=== PATIENT | female | born 1975 | race Caucasian/White ===

== ENCOUNTER 2019-12-11 13:38 | Emergency (ER) | payer BC ==
--- OUTSIDE RECORDS SUMMARY | 2019-12-11 13:40 | XMS REPORT ---
:1975 Author Organization [facility] Address [address] [place] [address] Dr. Mckeon [address] [place] [address] Care Team Providers Name Role Phone Unavailable Unavailable Unavailable Problems This patient has no known problems. Allergies, Adverse Reactions, Alerts This patient has no known allergies or adverse reactions. Medications This patient has no known medications.
--- OUTSIDE RECORDS SUMMARY | 2019-12-11 13:40 | XMS REPORT | Summary of Care ---
:1975 Author Organization [facility] Address [address] [place] [address] Care Team Providers Name Role Phone Alexa Ko ANP Primary Care Provider Reason for Visit Reason Comments Physical Encounter Details Date Type Department Care Team Description 05/19/2019 Office Visit [facility] Pediatric Alexa Ko, Physical exam, annual (Primary Dx); & Adult Primary ANP High cholesterol; [facility] [address] [facility] [place] Hypothyroidism, unspecified type; [address] [place], [place] [phone] Allergies No Known Allergiesdocumented as of this encounter (statuses as of 05/19/2019) Medications Medication Sig Dispensed Refills Start Date End Date Status levonorgestrel 1 Device by 0 Active (MIRENA) 20 mcg/24 hr Intrauterine route (5 years) IUD once now. lisinopril 5 mg 1 by mouth every 90 tablet 1 02/16/2019 Active tabletIndications: day Essential hypertension, benign Levothyroxine 100 mcg Take 1 capsule by 90 capsule 0 02/21/2019 Active capsuleIndications: mouth daily. 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 documented as of this encounter Last Filed Vital Signs Vital Sign Reading Time Taken Comments Blood Pressure 127/87 05/19/2019 1:13 PM CDT Pulse 74 05/19/2019 1:13 PM CDT Temperature - - Respiratory Rate 18 05/19/2019 1:13 PM CDT Oxygen Saturation 96% 05/19/2019 1:13 PM CDT Inhaled Oxygen Concentration - - Weight 106.2 kg (234 lb 3 oz) 05/19/2019 1:13 PM CDT Height 164.5 cm (5' 4.76") 05/19/2019 1:13 PM CDT Body Mass Index 39.26 05/19/2019 1:13 PM CDT documented in this encounter Progress Notes Alexa Ko, ANP - 05/19/2019 1:20 PM CDT History of Present Illness CC: physical Adriana Donnelly is a 44 year old female with h/o has a past medical history of Asthma, Hypertension, Migraine, and Unspecified hypothyroidism (2013). present for established patient annualexamination. Doing well. No concerns voiced. Tolerating medications with no reported SE's. 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 Needs titers for MMR, Varicella, Hepatitis B. Vaccines required Tdap, Flu shot. LMP -not documented Has Mirina IUD in place - had been having gross menorrhagia Mammogram -current /on file Repeat TSH, Free T4 due now- thyroid levels from February 2019 reflecting being off medication at that time Tdap booster today Flu shot- will obtain at pharmacy Colonoscopy -never REVIEW OF SYSTEMS Review of Systems Review of Systems: (all negative and + Bold) General: fever, weight change, fatigue, change in appetite Skin: rash HEENT: change in vision, See Above Resp: shortness of breath, dyspnea on exertion Cardio: chest pain, palpitations, syncope GI: abdominal pain, nausea, vomiting, diarrhea, constipation : dysuria,hematuria Neuro: numbness, weakness Back: pain MS: joint pain, claudication Psych: anxiety, depression Also see above HPI for +/- Past History Reviewed: family history , past medical history, social history and surgical history Updated: family history , past medical history, social history and surgical history Past Medical History: Diagnosis Date Asthma Hypertension Migraine Unspecified hypothyroidism 11/19/2013 Family History Problem Relation Age of Onset Hypertension Mother Hypertension Father Diabetes Father Thyroid Mother Heart Sister afib Cancer Paternal Grandmother leukemia Family Status Relation Name Status Mo (Not Specified) Fa (Not Specified) Fa (Not Specified) Mo (Not Specified) Sis (Not Specified) PGMo (Not Specified) No past surgical history on file. OB History No data available Physical Exam BP 127/87 | Pulse 74 | Resp 18 | Ht 5' 4.76" (1.645 m) | Wt 234 lb 3 oz ( 106.2 kg) | SpO2 96% | BMI 39.26 kg/m Wt Readings from Last 4 Encounters: 05/19/19 234 lb 3 oz (106.2 kg) 02/16/19 233 lb (105.7 kg) 02/04/14 206 lb (93.4 kg) 12/11/13 202 lb 9.6 oz (91.9 kg) GENERAL: Alert, No acute distress EENT: PERRL, EOMI, sclera -anicteric. Oral - moist mucus membranes, no erythema or exudate. NECK: Supple, no JVD, no adenopathy, thyromegaly or bruits LUNGS: CTA bilaterally. Good air exchange. No wheezes or crackles. HEART: Regular rate and rhythm ABDOMEN: Non-distended, Non-tender, soft, positive bowel sounds all four quadrants. No oraganomegalyor masses noted. No guarding or rebound. BACK: No CVAT or spinal tenderness EXTREMITIES: No edema. Warm feet and pulses symmetric. JOINTS: No synovitis. FROM NEURO: No focal deficits. SKIN: No suspicious lesions, good turgor MOOD: Appropriate. Good judgement and eye contact. Current Medications Outpatient Medications Marked as Taking for the 05/19/19 encounter (Office Visit ) with Kevyn Ko ANP Medication Sig Dispense Refill Levothyroxine 100 mcg capsule Take 1 capsule by mouth daily. 90 capsule 0 levonorgestrel (MIRENA) 20 mcg/24 hr (5 years) IUD 1 Device by Intrauterine route once now. lisinopril 5 mg tablet 1 by mouth every day 90 tablet 1 Labs Reviewed No visits with results within 3 Month(s) from this visit. Latest known visit with results is: Office Visit on 02/16/2019 Component Date Value NA 02/16/2019 141 K 02/16/2019 4.0 CL 02/16/2019 108 CO2 TOTAL 02/16/2019 24 AGAP 02/16/2019 9 BUN 02/16/2019 13 GLUCOSE 02/16/2019 100 CREATININE 02/16/2019 0.74 TOTAL BILI 02/16/2019 1.4* CALCIUM 02/16/2019 9.2 T PROTEIN 02/16/2019 7.0 ALBUMIN 02/16/2019 4.0 ALK PHOS 02/16/2019 125* ALT(SGPT) 02/16/2019 43 AST(SGOT) 02/16/2019 28 eGFR Calculation (Non-Af* 02/16/2019 86.1 eGFR Calculation (Sarah* 02/16/2019 104.3 CHOL 02/16/2019 217* HDL 02/16/2019 46* HDLC RATIO 02/16/2019 4.7* TRIG 02/16/2019 148 LDL CHOL 02/16/2019 141 VLDL 02/16/2019 30 TSH 02/16/2019 31.40* FREE T4 02/16/2019 0.54* Assessment and Plan 1. Physical exam, annual GLYCOSYLATED HEMOGLOBIN (A1C) VITAMIN B12, LEVEL CBC WITH DIFF MEASLES IGG MUMPS IGG RUBELLA AB, IGM VZV ANTIBODY SCREEN HEPATITIS B SURFACE ANTIBODY CANCELED: COMP. METABOLIC PANEL (15682) 2. High cholesterol GLYCOSYLATED HEMOGLOBIN (A1C) CANCELED: COMP. METABOLIC PANEL (49326) CANCELED: LIPID PANEL (94059)(TOTAL CHOLESTEROL, TRIGLYCERIDES, HDL) 3. Hypothyroidism, unspecified type GLYCOSYLATED HEMOGLOBIN (A1C) THYROID STIMULATING HORMONE VITAMIN B12, LEVEL FREE T4 CANCELED: COMP. METABOLIC PANEL (10719) CANCELED: LIPID PANEL (33490)(TOTAL CHOLESTEROL, TRIGLYCERIDES, HDL) Additional Comments Follow up one year /prn Recommend regular exercise, weight loss, low fat, low salt, low cholesterol diet to prevent/manage diseases such as hypertension, diabetes, hyperlipidemia and heart disease As necessary, prescribed medications and potential significant medication side effects or medicationinteractions were discussed with the patient and pt will let me know if any occur. Call or return to clinic prn if these symptoms worsen or fail to improve as anticipated. Call or report to ER if symptoms should symptoms progress or worsen. The patient indicates understanding of these issues and agrees with the plan. AVS printed and given to patient/family/guardian Follow up as below Future Appointments Provider Department Dept Phone Center 08/17/2019 7:00 AM Alexa Ko ANP [facility] Pediatric & Adult Primary [phone] CBC Friendsw documented in this encounter Plan of Treatment Date Type Specialty Care Team Description 08/17/2019 Office Visit Family Medicine Alexa Ko ANP [address] [place] [phone] Name Type Priority Associated Diagnoses Order Schedule GLYCOSYLATED HEMOGLOBIN LAB Routine Physical exam, annual Ordered: 05/19/2019 (A1C) High cholesterol Hypothyroidism, unspecified type THYROID STIMULATING LAB Routine Hypothyroidism, Ordered: 05/19/2019 HORMONE unspecified type VITAMIN B12, LEVEL LAB Routine Physical exam, annual 1 Occurrences starting Hypothyroidism, 05/19/2019 until unspecified type 05/19/2019 CBC WITH DIFF LAB Routine Physical exam, annual 1 Occurrences starting 05/19/2019 until 05/19/2019 FREE T4 LAB Routine Hypothyroidism, 1 Occurrences starting unspecified type 05/19/2019 until 06/17/2019 MEASLES IGG LAB Routine Physical exam, annual Ordered: 05/19/2019 MUMPS IGG LAB Routine Physical exam, annual Ordered: 05/19/2019 RUBELLA AB, IGM LAB Routine Physical exam, annual Ordered: 05/19/2019 VZV ANTIBODY SCREEN LAB Routine Physical exam, annual Ordered: 05/19/2019 HEPATITIS B SURFACE LAB Routine Physical exam, annual Ordered: 05/19/2019 ANTIBODY Health Maintenance Due Date Last Done Comments DTaP,Tdap,and Td Vaccines ( - 1995 Tdap) PAP SMEAR 1997 INFLUENZA VACCINE (#1) 2019 MAMMOGRAM 02/28/2020 02/27/2019 PNEUMOCOCCAL 0-64 YEARS COMBINED Aged Out No longer eligible based on SERIES patient's age to complete this topic documented as of this encounter Procedures Procedure Name Priority Date/Time Associated Diagnosis Comments TDAP (ADACEL) Routine 05/19/2019 1:32 PM Need for vaccination IMMUNIZATION CDT documented in this encounter Results Not on filedocumented in this encounter Visit Diagnoses Diagnosis Physical exam, annual - Primary Routine general medical examination at a health care facility High cholesterol Pure hypercholesterolemia Hypothyroidism, unspecified type Need for vaccination Need for prophylactic vaccination and inoculation against unspecified single disease documented in this encounter Insurance Payer Benefit Plan / Subscriber ID Effective Dates Phone Address Type Group BCBS OF HIM BCBS BLUE [id number] 2018-Ginger [phone] [address] [facility] t [id number] [place] [address] documented as of this encounter
--- OUTSIDE RECORDS SUMMARY | 2019-12-11 13:41 | XMS REPORT | Summary of Care ---
:1975 Author Organization [facility] Address [address] [place] [address] Care Team Providers Name Role Phone Alexa Ko ANP Primary Care Provider Reason for Visit Reason Comments Physical Encounter Details Date Type Department Care Team Description 05/19/2019 Office Visit [facility] Pediatric Alexa Ko, Physical exam, annual (Primary Dx); & Adult Primary ANP High cholesterol; [facility] [address] [facility] Hypothyroidism, unspecified type; [address] [place], [place] [phone] Allergies No Known Allergiesdocumented [...] Date Hypothyroidism 11/19/2013 Overview: ICD10 Diagnosis 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 Needs titers for MMR, [...] B SURFACE ANTIBODY CANCELED: COMP. METABOLIC PANEL (49541) 2. High cholesterol GLYCOSYLATED HEMOGLOBIN (A1C) CANCELED: COMP. METABOLIC PANEL (90283) CANCELED: LIPID PANEL (83915)(TOTAL CHOLESTEROL, TRIGLYCERIDES, HDL) 3. Hypothyroidism, unspecified type GLYCOSYLATED HEMOGLOBIN (A1C) THYROID STIMULATING HORMONE VITAMIN B12, LEVEL FREE T4 CANCELED: COMP. METABOLIC PANEL (67466) CANCELED: LIPID PANEL (41938)(TOTAL CHOLESTEROL, TRIGLYCERIDES, HDL) Additional Comments Follow up [...] Center 08/17/2019 7:00 AM Alexa Ko ANP [facility] Pediatric & Adult Primary [phone] CBC Friendsw documented in this encounter Plan of Treatment Date Type Specialty Care Team Description 08/17/2019 Office Visit Family Medicine Alexa Ko ANP [address] [place] [phone] Name Type Priority Associated Diagnoses Order [...] Type Group BCBS OF HIM BCBS BLUE [id number] 2018-Ginger [phone] [address] [facility] t 7 [phone] [place] [address] documented as of this encounter
--- OUTSIDE RECORDS SUMMARY | 2019-12-11 13:41 | XMS REPORT | Summary of Care ---
:1975 Author Organization [facility] Address [address] [place] [address] Care Team Providers Name Role Phone Alexa Ko ANP Primary Care Provider Reason for Visit Reason Comments Physical Encounter Details Date Type Department Care Team Description 05/19/2019 Office Visit [facility] Pediatric Alexa Ko Physical exam , annual (Primary Dx); & Adult Primary D, ANP High cholesterol; [address] Hypothyroidism, unspecified type; [address] [facility] Need for vaccination; [place], [place] Hypothyroidism due to acquired atrophy of thyroid; [phone] Medication monitoring encounter [phone] Allergies No Known Allergiesdocumented as of this [...] Date Hypothyroidism 11/19/2013 Overview: ICD10 Diagnosis 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 present for established patient annualexamination. Doing well. No concerns voiced. Tolerating medications with no reported SE's. 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 Needs titers for [...] B SURFACE ANTIBODY CANCELED: COMP. METABOLIC PANEL (63349) 2. High cholesterol GLYCOSYLATED HEMOGLOBIN (A1C) CANCELED: COMP. METABOLIC PANEL (40616) CANCELED: LIPID PANEL (61799)(TOTAL CHOLESTEROL, TRIGLYCERIDES, HDL) 3. Hypothyroidism, unspecified type GLYCOSYLATED HEMOGLOBIN (A1C) THYROID STIMULATING HORMONE VITAMIN B12, LEVEL FREE T4 CANCELED: COMP. METABOLIC PANEL (16885) CANCELED: LIPID PANEL (86559)(TOTAL CHOLESTEROL, TRIGLYCERIDES, HDL) Additional Comments Follow up [...] Dept Phone Center 08/17/2019 7:00 AM Alexa Ko, ANP [facility] Pediatric & Adult Primary [phone] CBC Friendsw documented in this encounter Plan of Treatment Date Type Specialty Care Team Description 08/17/2019 Office Visit Family Medicine Alexa Ko, BHANU [address] [place] [phone] Name Type Priority Associated Diagnoses Order [...] Routine Physical exam, annual Ordered: 05/19/2019 ANTIBODY CBC WITH DIFFERENTIAL LAB Routine Physical exam, annual Ordered: 05/19/2019 Health Maintenance Due Date Last Done Comments DTaP,Tdap,and Td Vaccines (1 - 1995 Tdap) PAP SMEAR 1997 INFLUENZA [...] vaccination and inoculation against unspecified single disease Hypothyroidism due to acquired atrophy of thyroid Medication monitoring encounter Encounter for therapeutic drug monitoring documented in this encounter Insurance Payer Benefit Plan / Subscriber ID Effective Dates Phone Address Type Group BCBS OF HIM BCBS BLUE [id number] [facility] [phone] [address] [facility] t [id number] [place] [address] documented as of this encounter
--- OUTSIDE RECORDS SUMMARY | 2019-12-11 13:41 | XMS REPORT | Summary of Care ---
:1975 Author Organization [facility] Address [address] [place] [address] Care Team Providers Name Role Phone Alexa Ko ANP Primary Care Provider Reason for Visit Reason Comments Physical Encounter Details Date Type Department Care Team Description 05/19/2019 Office Visit [facility] Pediatric Alexa Ko Physical exam , annual (Primary Dx); & Adult Primary D, ANP High cholesterol; [address] Hypothyroidism, unspecified type; [address] [facility] Need for vaccination; [place], [place] Hypothyroidism due to acquired atrophy of thyroid; [phone] Medication monitoring encounter [phone] Allergies No Known Allergiesdocumented as of this [...] Date Hypothyroidism 11/19/2013 Overview: ICD10 Diagnosis Term 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 Needs titers for [...] B SURFACE ANTIBODY CANCELED: COMP. METABOLIC PANEL (99527) 2. High cholesterol GLYCOSYLATED HEMOGLOBIN (A1C) CANCELED: COMP. METABOLIC PANEL (37068) CANCELED: LIPID PANEL (46342)(TOTAL CHOLESTEROL, TRIGLYCERIDES, HDL) 3. Hypothyroidism, unspecified type GLYCOSYLATED HEMOGLOBIN (A1C) THYROID STIMULATING HORMONE VITAMIN B12, LEVEL FREE T4 CANCELED: COMP. METABOLIC PANEL (55138) CANCELED: LIPID PANEL (62363)(TOTAL CHOLESTEROL, TRIGLYCERIDES, HDL) Additional Comments Follow up [...] Center 08/17/2019 7:00 AM Alexa Ko, ANP [facility] Pediatric & Adult Primary [phone] CBC Friendsw documented in this encounter Plan of Treatment Date Type Specialty Care Team Description 08/17/2019 Office Visit Family Medicine Alexa Ko, BHANU [address] [place] [phone] Name Type Priority Associated Diagnoses Order [...] Type Group BCBS OF HIM BCBS BLUE [id number] [facility] [phone] [address] [facility] t [phone] [place] [address] documented as of this encounter
--- OUTSIDE RECORDS SUMMARY | 2019-12-11 13:41 | XMS REPORT | Summary of Care ---
:1975 Author Organization [facility] Address [address] [place] [address] Care Team Providers Name Role Phone Alexa Ko ANP Primary Care Provider Reason for Visit Reason Comments TEST RESULTS returning nurse call Encounter Details Date Type Department Care Team Description 05/20/2019 Telephone [facility] Pediatric & Alexa Ko, TEST RESULTS (returning Adult Primary ANP nurse call) [facility] [phone] Allergies No Known Allergiesdocumented as of this encounter (statuses as of 05/25/2019) Medications Medication Sig Dispensed Refills Start Date [...] as of this encounter (statuses as of 05/25/2019) Active Problems Problem Noted Date Hypothyroidism 11/19/2013 Overview: ICD10 Diagnosis 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 Essential hypertension, benign 11/19/2013 Asthma Migraine documented as of this encounter (statuses as of 05/25/2019) Immunizations Name Administration Dates Next Due PPD (TB) 07/23/2017 TDAP (ADACEL) VACCINE 05/19/2019 documented as of [...] of this encounter Last Filed Vital Signs Not on filedocumented in this encounter Plan of Treatment Date Type Specialty Care Team Description 05/26/2019 Nurse Visit Pediatrics Nurse, 08/17/2019 Office Visit Family Medicine Alexa Ko, ANP [address] [place] [phone] Name Type Priority Associated Diagnoses Order Schedule TSH LAB Routine Hypothyroidism, unspecified type Expected: 05/26/2019, Expires: 09/24/2019 T4 FREE LAB Routine Hypothyroidism, unspecified type Expected: 05/26/2019, Expires: 09/24/2019 Health Maintenance Due Date Last Done Comments PAP SMEAR 1997 INFLUENZA VACCINE (#1) 2019 MAMMOGRAM 02/28/2020 02/27/2019 DTaP,Tdap,and Td Vaccines (2 - Td) 05/19/2029 05/19/2019 PNEUMOCOCCAL 0-64 YEARS COMBINED Aged Out No longer eligible based on SERIES patient's age to complete this topic documented as of this encounter Results Not on filedocumented in this encounter Visit Diagnoses Diagnosis Hypothyroidism, unspecified type - Primary documented in this encounter Insurance Payer Benefit Plan / Subscriber ID Effective Dates Phone Address Type Group BCBS OF HIM BCBS BLUE [id number] 2018-[place]inger [phone] [facility] t [id number] [place] [address] documented as of this encounter
--- OUTSIDE RECORDS SUMMARY | 2019-12-11 13:41 | XMS REPORT | Summary of Care ---
:1975 Author Organization [facility] Address [address] [place] [address] Care Team Providers Name Role Phone Alexa Ko ANP Primary Care Provider Reason for Visit Reason Comments NURSE VISIT MMR vaccine Encounter Details Date Type Department Care Team Description 05/26/2019 Nurse Visit [facility] Pediatric Alexa Ko, ANP [address] [place] [address] Need for MMR vaccine (Primary Dx); Primary Care - Nurse, Amita Hypothyroidism, unspecified type [place] [address] [place] [address] Allergies No Known Allergiesdocumented as of this encounter (statuses as of 05/26/2019) Medications Medication Sig Dispensed Refills Start Date [...] as of this encounter (statuses as of 05/26/2019) Active Problems Problem Noted Date Hypothyroidism 11/19/2013 Overview: ICD10 Diagnosis Term 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 Per provider's note: Notes recorded by Alexa Ko, ANP on 05/24/2019 at 1:12 PM CDT Patient needs MMR booster Titers to Rubella and Measles is Negative MMR #1 given right arm. Pt tolerated well. VIS given and reviewed, advised to avoid x 1 month due to live virus, ER warnings, tylenol/motrin reviewed. [place] scheduled 06/26/19 @ 0930 for MMR #2.Pt verbalized understanding. Copy of form scanned to record Pt completed medical release of information-lab results printed. documented in this encounter Plan of Treatment Date Type Specialty Care Team Description 06/26/2019 Nurse Visit Pediatrics Nurse, 08/17/2019 Office Visit Family Medicine Alexa Ko, ANP [address] [place] [address] Health Maintenance Due Date Last Done Comments PAP SMEAR 1997 INFLUENZA VACCINE (#1) 2019 MAMMOGRAM 02/28/2020 02/27/2019 DTaP,Tdap,and Td Vaccines (2 - Td) 05/19/2029 05/19/2019 PNEUMOCOCCAL 0-64 YEARS COMBINED Aged Out No longer eligible based on SERIES patient's age to complete this topic documented as of this encounter Procedures Procedure Name Priority Date/Time Associated Diagnosis Comments MMR Routine 05/26/2019 9:32 AM Hypothyroidism, (MEASLES/MUMPS/RUBELLA CDT unspecified type ) VACCINE documented in this encounter Results Not on filedocumented in this encounter Visit Diagnoses Diagnosis Need for MMR vaccine - Primary Need for prophylactic vaccination with hneuutx-qfgbb-lsoclic (MMR) vaccine Hypothyroidism, unspecified type documented in this encounter Insurance Payer Benefit Plan / Subscriber ID Effective Dates Phone Address Type Group BCBS OF HIM BCBS ANALI [id number] 2018-Ginger [phone] [facility] t 7 [id number] [place] [address] documented as of this encounter
--- OUTSIDE RECORDS SUMMARY | 2019-12-11 13:41 | XMS REPORT | Summary of Care ---
:1975 Author Organization [facility] Address [address] [place] [id number] Care Team Providers Name Role Phone Alexa Ko ANP Primary Care Provider Reason for Visit Reason Comments TEST RESULTS returning nurse call Encounter Details Date Type Department Care Team Description 05/20/2019 Telephone [facility] Pediatric & Alexa Ko, TEST RESULTS (returning Adult Primary ANP nurse call) [facility] [phone] Allergies No Known Allergiesdocumented [...] Date Hypothyroidism 11/19/2013 Overview: ICD10 Diagnosis Term Resident Director Utility Essential hypertension, benign 11/19/2013 Asthma Migraine documented as of this encounter (statuses as of 05/26/2019) Immunizations Name Administration Dates Next Due PPD [...] Care Team Description 05/26/2019 Nurse Visit Pediatrics Alexa Ko, ANP [address] [place] [address] Nurse, 08/17/2019 Office Visit Family Medicine Alexa Ko, ANP [address] [place] [address] Name Type Priority Associated Diagnoses Order Schedule TSH LAB Routine Hypothyroidism, Expected: unspecified type 05/26/2019, Expires: 09/24/2019 T4 FREE LAB Routine Hypothyroidism, Expected: unspecified type 05/26/2019, Expires: 09/24/2019 MMR IMMUNIZATION/INJ Routine Hypothyroidism, Expected: (MEASLES/MUMPS/RUBE ECTION unspecified type 05/26/2019, LLA) VACCINE Expires: 11/24/2019 Health Maintenance Due Date Last Done Comments PAP SMEAR 1997 INFLUENZA VACCINE (#1) 2019 MAMMOGRAM 02/28/2020 02/27/2019 DTaP,Tdap,and Td Vaccines (2 - Td) 05/19/2029 05/19/2019 PNEUMOCOCCAL 0-64 YEARS COMBINED Aged Out No longer eligible based on SERIES patient's age to complete this topic documented as of this encounter Results Not on filedocumented in this encounter Visit Diagnoses Diagnosis Hypothyroidism, unspecified type - Primary Need for vaccination Need for prophylactic vaccination and inoculation against unspecified single disease documented in this encounter Insurance Payer Benefit Plan / Subscriber ID Effective Dates Phone Address Type Group BCBS OF HIM BCBS BLUE [id number] 2018-Ginger [phone] [address] [facility] t 7 [id number] [place] [address] documented as of this encounter
--- OUTSIDE RECORDS SUMMARY | 2019-12-11 13:41 | XMS REPORT | Summary of Care ---
:1975 Author Organization [facility] Address [address] [place] [id number] Care Team Providers Name Role Phone Alexa Ko ANP Primary Care Provider Reason for Visit Reason Comments Physical Encounter Details Date Type Department Care Team Description 05/19/2019 Office Visit [facility] Pediatric Alexa Ko Physical exam , annual (Primary Dx); & Adult Primary D, ANP High cholesterol; [address] Hypothyroidism, unspecified type; [address] [facility] Need for vaccination; [place], [place] Hypothyroidism due to acquired atrophy of thyroid; [phone] Medication monitoring encounter [phone] Allergies No Known Allergiesdocumented as of this [...] Date Hypothyroidism 11/19/2013 Overview: ICD10 Diagnosis Term Funeral Director Utility Essential hypertension, benign 11/19/2013 Asthma [...] 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 Needs titers [...] B SURFACE ANTIBODY CANCELED: COMP. METABOLIC PANEL (61077) 2. High cholesterol GLYCOSYLATED HEMOGLOBIN (A1C) CANCELED: COMP. METABOLIC PANEL (95802) CANCELED: LIPID PANEL (24368)(TOTAL CHOLESTEROL, TRIGLYCERIDES, HDL) 3. Hypothyroidism, unspecified type GLYCOSYLATED HEMOGLOBIN (A1C) THYROID STIMULATING HORMONE VITAMIN B12, LEVEL FREE T4 CANCELED: COMP. METABOLIC PANEL (21384) CANCELED: LIPID PANEL (10569)(TOTAL CHOLESTEROL, TRIGLYCERIDES, HDL) Additional Comments Follow up [...] Center 08/17/2019 7:00 AM Alexa Ko, ANP [facility] Pediatric & Adult Primary [phone] CBC Friendsw documented in this encounter Plan of Treatment Date Type Specialty Care Team Description 08/17/2019 Office Visit Family Medicine Alexa Ko, BHANU [address] [place] [phone] Name Type Priority Associated Diagnoses Date/Time GLYCOSYLATED HEMOGLOBIN LAB Routine Physical exam, annual 05/19/2019 2:06 PM (A1C) High cholesterol CDT Hypothyroidism, unspecified type THYROID STIMULATING HORMONE LAB Routine Hypothyroidism, 05/19/2019 2:06 PM unspecified type CDT VITAMIN B12, LEVEL LAB Routine Physical exam, annual 05/19/2019 2:06 PM Hypothyroidism, CDT unspecified type CBC WITH DIFF LAB Routine Physical exam, annual 05/19/2019 2:06 PM CDT FREE T4 LAB Routine Hypothyroidism, 05/19/2019 2:06 PM unspecified type CDT MEASLES IGG LAB Routine Physical exam, annual 05/19/2019 2:06 PM CDT MUMPS IGG LAB Routine Physical exam, annual 05/19/2019 2:06 PM CDT RUBELLA AB, IGM LAB Routine Physical exam, annual 05/19/2019 2:06 PM CDT VZV ANTIBODY SCREEN LAB Routine Physical exam, annual 05/19/2019 2:06 PM CDT HEPATITIS B SURFACE LAB Routine Physical exam, annual 05/19/2019 2:06 PM ANTIBODY CDT TRIIODOTHYRONINE LAB Routine Hypothyroidism due to 05/19/2019 2:06 PM acquired atrophy of CDT thyroid Medication monitoring encounter THYROID PEROXIDASE (TPO) LAB Routine Hypothyroidism due to 05/19/2019 2: 06 PM AB acquired atrophy of CDT thyroid Medication monitoring encounter CBC WITH DIFFERENTIAL LAB Routine Physical exam, annual 05/19/2019 2:06 PM CDT Name Type Priority Associated Diagnoses Order Schedule VITAMIN B12, LEVEL LAB Routine Physical exam, annual 1 Occurrences starting Hypothyroidism, 05/19/2019 until unspecified type 05/19/2019 CBC WITH DIFF LAB Routine Physical exam, annual 1 Occurrences starting 05/19/2019 until 05/19/2019 FREE T4 LAB Routine Hypothyroidism, 1 Occurrences starting unspecified type 05/19/2019 until 06/17/2019 Health Maintenance Due Date Last Done Comments [...] Type Group BCBS OF HIM BCBS BLUE [id number] 2018-Ginger [phone] HMO [facility] t [id number] [place] [address] documented as of this encounter
--- NOTE | 2019-12-11 14:18 | EDPHYS ---
Physician Documentation [facility] Name: Adriana Donnelly Age: 44 yrs Sex: Female : 1975 Arrival Date: 12/11/2019 Time: 13:43 Bed 13 Private MD: ED Physician Larry Beyer HPI: 12/10 14:19 This 44 yrs old Female presents to ER via Ambulatory with complaints of jr8 Insect Bite. 14:19 the patient presents with a swollen area of the neck. Onset: The symptoms/episode jr8 began/occurred acutely, 2 day(s) ago. Possible cause(s): unknown. Associated signs and symptoms: The patient has no apparent associated signs or symptoms. Modifying factors: the symptoms are alleviated by nothing, the symptoms are aggravated by squeezing the lesion and expressing the contents, touching. Severity of symptoms: At their worst the symptoms were mild, in the emergency department the symptoms are unchanged. The patient has not experienced similar symptoms in the past. The patient has not recently seen a physician. 14:28 patient stated that she has had small red area on neck. Now enlarging . jr8 Historical: - Allergies: 14:00 No Known Allergies; iw - Home Meds: 14:00 lisinopril 5 mg Oral tab 1 tab once daily [Active]; levothyroxine 100 mcg tab 1 tab iw once daily [Active]; - PMHx: 14:00 Hypothyroidism; Hypertension; iw - PSHx: 14:00 None; iw - Immunization history:: Adult Immunizations up to date. - Social history:: Smoking status: Patient denies any tobacco usage or history of. ROS: 14:28 Eyes: Negative for injury, pain, redness, and discharge, ENT: Negative for injury, jr8 pain, and discharge, Neck: Negative for injury, pain, and swelling, Cardiovascular: Negative for chest pain, palpitations, and edema, Respiratory: Negative for shortness of breath, cough, wheezing, and pleuritic chest pain, Abdomen/GI: Negative for abdominal pain, nausea, vomiting, diarrhea, and constipation, Back: Negative for injury and pain, MS/Extremity: Negative for injury and deformity, Neuro: Negative for headache, weakness, numbness, tingling, and seizure. 14:28 Skin: Positive for erythema, swelling, of the neck. Exam: 14:28 Eyes: Pupils equal round and reactive to light, extra-ocular motions intact. Lids and jr8 lashes normal. Conjunctiva and sclera are non-icteric and not injected. Cornea within normal limits. Periorbital areas with no swelling, redness, or edema. ENT: Nares patent. No nasal discharge, no septal abnormalities noted. Tympanic membranes are normal and external auditory canals are clear. Oropharynx with no redness, swelling, or masses, exudates, or evidence of obstruction, uvula midline. Mucous membranes moist. Neck: Trachea midline, no thyromegaly or masses palpated, and no cervical lymphadenopathy. Supple, full range of motion without nuchal rigidity, or vertebral point tenderness. No Meningismus. Cardiovascular: Regular rate and rhythm with a normal S1 and S2. No gallops, murmurs, or rubs. Normal PMI, no JVD. No pulse deficits. Respiratory: Lungs have equal breath sounds bilaterally, clear to auscultation and percussion. No rales, rhonchi or wheezes noted. No increased work of breathing, no retractions or nasal flaring. Abdomen/GI: Soft, non-tender, with normal bowel sounds. No distension or tympany. No guarding or rebound. No evidence of tenderness throughout. Back: No spinal tenderness. No costovertebral tenderness. Full range of motion. MS/ Extremity: Pulses equal, no cyanosis. Neurovascular intact. Full, normal range of motion. Neuro: Awake and alert, GCS 15, oriented to person, place, time, and situation. Cranial nerves II-XII grossly intact. Motor strength 5/5 in all extremities. Sensory grossly intact. Cerebellar exam normal. Normal gait. 14:28 Skin: Patient has small area of redness with mild induration to anterior neck near the sternal notch. No fluctuance. Freely mobile.. Vital Signs: 13:55 BP 145 / 92; Pulse 97; Resp 16 S; Temp 98.6; Pulse Ox 98% on R/A; Weight 104.33 kg; iw Height 5 ft. 4 in. (162.56 cm); 13:55 Body Mass Index 39.48 (104.33 kg, 162.56 cm) iw MDM: 13:[address] Patient medically screened[address] [facility] 14:17 Data reviewed: vital signs, nurses notes, and as a result, I will discharge patient. jr8 Data interpreted: Pulse oximetry: on room air is 98 %. Interpretation: normal. Counseling: I had a detailed discussion with the patient and/or guardian regarding: the historical points, exam findings, and any diagnostic results supporting the discharge/admit diagnosis, the need for outpatient follow up, a family practitioner, to return to the emergency department if symptoms worsen or persist or if there are any questions or concerns that arise at home. Administered Medications: No medications were administered Disposition: 16:04 Co-signature as Attending Physician, Larry Beyer MD. rn Disposition: 12/11/19 14:17 Discharged to Home. Impression: Local infection of the skin and subcutaneous tissue, unspecified. - Condition is Stable. - Discharge Instructions: Skin Abscess, Cellulitis, Adult, [id number]. - Prescriptions for Bactroban 2 % Topical Ointment - Apply to affected area 1 application by TOPICAL route every 12 hours; 30 gram. Bactrim DS 800- 160 mg Oral Tablet - take 1 tablet by ORAL route every 12 hours for 10 days; 20 tablet. - Medication Reconciliation Form, Thank You Letter, Antibiotic Education, Prescription Opioid Use form. - Follow up: Private Physician; When: 2 - 3 days; Reason: Wound Recheck, Recheck today's complaints, Continuance of care, Re-evaluation by your physician. - Problem is new. - Symptoms have improved. Signatures: Ginette Roque RN RN iw Nieto, Roman, MD MD rn Roszak, Josh, PA PA jr8 Stephanie Montejo RN RN vc Corrections: (The following items were deleted from the chart) 14:46 14:17 12/11/2019 14:17 Discharged to Home. Impression: Local infection of the skin and vc subcutaneous tissue, unspecified. Condition is Stable. Forms are Medication Reconciliation Form, Thank You Letter, Antibiotic Education, Prescription Opioid Use. Follow up: Private Physician; When: 2 - 3 days; Reason: Wound Recheck, Recheck today's complaints, Continuance of care, Re-evaluation by your physician. Problem is new. Symptoms have improved. jr8
--- NOTE | 2019-12-11 14:18 | ER ---
Nurse's Notes [facility] Name: Adriana Donnelly Age: 44 yrs Sex: Female : 1975 Arrival Date: 12/11/2019 Time: 13:43 Bed 13 Private MD: Diagnosis: Local infection of the skin and subcutaneous tissue, unspecified Presentation: 12/10 13:55 Chief complaint: Patient states: has an itch painful spot on skin of neck X 2 days, iw feels like a small pea sized lump , also feels mild pressure in throat, started running fever an hour ago , temp 100.0. Coronavirus screen: Patient denies fever greater than 100.4F, cough, shortness of breath, or difficulty breathing. Proceed with normal triage process. Ebola Screen: Patient negative for fever greater than or equal to 101.5 degrees Fahrenheit, and additional compatible Ebola Virus Disease symptoms Patient denies exposure to infectious person. Patient denies travel to an Ebola-affected area in the 21 days before illness onset. No symptoms or risks identified at this time. Initial Sepsis Screen: Does the patient meet any 2 criteria? No. Patient's initial sepsis screen is negative. Does the patient have a suspected source of infection? No. Patient's initial sepsis screen is negative. Risk Assessment: Do you want to hurt yourself or someone else? Patient reports no desire to harm self or others. 13:55 Method Of Arrival: Ambulatory iw 13:55 Acuity: JOHNY 4 iw Triage Assessment: 14:00 Bite description: bite sustained to neck by unknown insect. General: Appears in no vc apparent distress. Behavior is calm, cooperative, appropriate for age. Pain: Complains of pain in neck. Historical: - Allergies: 14:00 No Known Allergies; iw - Home Meds: 14:00 lisinopril 5 mg Oral tab 1 tab once daily [Active]; levothyroxine 100 mcg tab 1 tab iw once daily [Active]; - PMHx: 14:00 Hypothyroidism; Hypertension; iw - PSHx: 14:00 None; iw - Immunization history:: Adult Immunizations up to date. - Social history:: Smoking status: Patient denies any tobacco usage or history of. Screenin:00 Abuse screen: Denies threats or abuse. Nutritional screening: No deficits noted. vc Tuberculosis screening: No symptoms or risk factors identified. Fall Risk None identified. Assessment: 14:00 Derm: Skin is intact, is healthy with good turgor, Skin is pink, warm \T\ dry. Abscess vc located on neck. 14:00 General: Appears in no apparent distress. comfortable, Behavior is calm, cooperative, vc appropriate for age. Pain: Complains of pain in neck Pain does not radiate. Cardiovascular: Patient's skin is warm and dry. Respiratory: Airway is patent Respiratory effort is even, unlabored, Respiratory pattern is regular, symmetrical. Musculoskeletal: Circulation, motion, and sensation intact. Range of motion: intact in all extremities. Vital Signs: 13:55 BP 145 / 92; Pulse 97; Resp 16 S; Temp 98.6; Pulse Ox 98% on R/A; Weight 104.33 kg; iw Height 5 ft. 4 in. (162.56 cm); 13:55 Body Mass Index 39.48 (104.33 kg, 162.56 cm) iw ED Course: 13:43 Patient arrived in ED. fj1 13:53 Zaki Robbins PA is [facility] 8 13:53 Larry Beyer MD is Attending Physician. jr8 14:00 Triage completed. iw 14:00 Arm band placed on right wrist. vc 14:01 Stephanie Montejo RN is Primary Nurse. vc 14:35 No provider procedures requiring assistance completed. Patient did not have IV access vc during this emergency room visit. Administered Medications: No medications were administered Outcome: 14:17 Discharge ordered by . jr8 14:35 Discharged to home ambulatory. vc 14:35 Condition: good 14:35 Discharge instructions given to patient, Instructed on discharge instructions, follow up and referral plans. medication usage, Demonstrated understanding of instructions, follow-up care, medications, Prescriptions given X 2. 14:37 Patient left the ED. vc Signatures: Ginette Roque RN RN Zaki Robbins PA PA [facility] Stephanie Montejo RN RN vc Jeffery Mireles [facility] er Corrections: (The following items were deleted from the chart) 14:05 13:55 BP 145 / 92; Pulse 97bpm; Resp 16bpm; Spontaneous; Pulse Ox 98% RA; 104.33 kg; iw Height 5 ft. 4 in.; BMI: 39.4; iw 14:58 14:46 Patient left the ED. vc vc
[2019-12-11 15:11] VITALS: BP 145/92; TEMP 98.6; O2SAT 98
== END 2019-12-11 14:46 | disposition home or self-care (01) ==
LOC: ER 13:38
DX: L08.9 Local infection of the skin and subcutaneous tissue, unspecified (principal); I10 Essential (primary) hypertension; E03.9 Hypothyroidism, unspecified; W57.XXXA Bitten or stung by nonvenomous insect and other nonvenomous arthropods, initial encounter
CPT/HCPCS: 99282